=== PATIENT | female | born 1995 | race Caucasian/White ===

== ENCOUNTER 2016-07-08 01:04 | Emergency (ER) | payer SELFPAY ==
[~2016-07-08 01:04] MED LIST: FIORICET1 CAP PO; SYNTHROID RP0.088 MG PO
== END 2016-07-08 03:20 | disposition home or self-care (01) ==
LOC: ED 01:04
DX: F32.9 Major depressive disorder, single episode, unspecified (principal); R45.851 Suicidal ideations; F12.90 Cannabis use, unspecified, uncomplicated

== ENCOUNTER → 2017-05-20 | Outpatient (CLI) | payer SELFPAY ==
[2016-07-08 03:20] VITALS: BP 143/89
[2017-05-20 12:41] LABS: EOS # 0.1 (0.04-0.40); EOS % 0.9 % (1.0-5.0); HEMATOCRIT 34.3 % (37.0-47.0); HEMOGLOBIN 10.3 g/dL (12.5-16.0); LYMPH# 2.6 (1.50-4.00); MEAN CELL VOLUME 65 fl (78-100); MEAN CORPUSCULAR HEMOGLOBIN 20 pg (27-31); MEAN CORPUSCULAR HGB CONC 30 g/dL (33-37); MONO # 0.8 (0.20-0.80); NEU # 10.6 (1.40-6.50); PLATELET COUNT 242 K/mm3 (130-400); RED BLOOD COUNT 5.28 M/mm3 (4.10-5.30); RED CELL DISTRIBUTION WIDTH 18.3 % (11.5-14.5); WHITE BLOOD COUNT 14.2 K/mm3 (4.8-10.8)
== END ==
LOC: LAB 12:05
PROVIDERS: Family Medicine
DX: D64.9 Anemia, unspecified (principal); E03.9 Hypothyroidism, unspecified

== ENCOUNTER → 2017-09-02 | Outpatient (CLI) | payer SELFPAY ==
[2016-07-08 03:20] VITALS: BP 143/89
[2017-09-02 15:51] LABS: EOS # 0.1 (0.04-0.40); EOS % 0.9 % (1.0-5.0); HEMOGLOBIN 13.7 g/dL (12.5-16.0); LYMPH# 2.3 (1.50-4.00); MEAN CELL VOLUME 77 fl (78-100); MEAN CORPUSCULAR HEMOGLOBIN 26 pg (27-31); MEAN CORPUSCULAR HGB CONC 33 g/dL (33-37); MEAN PLATELET VOLUME 10.6 fl (7.4-10.4); MONO # 0.6 (0.20-0.80); PLATELET COUNT 312 K/mm3 (130-400); RED BLOOD COUNT 5.34 M/mm3 (4.10-5.30); WHITE BLOOD COUNT 12.6 K/mm3 (4.8-10.8)
[2017-09-02 16:07] LABS: NEU # 9.5 (1.40-6.50); RED CELL DISTRIBUTION WIDTH 18.2 % (11.5-14.5)
== END ==
LOC: LAB 14:41
PROVIDERS: Family Medicine
DX: D64.9 Anemia, unspecified (principal); E03.9 Hypothyroidism, unspecified

== ENCOUNTER → 2018-04-25 | Outpatient (CLI) | payer SELFPAY ==
[2016-07-08 03:20] VITALS: BP 143/89
== END ==
LOC: LAB 11:12
DX: E83.119 Hemochromatosis, unspecified (principal)